=== PATIENT | female | born 1965 | race Two or more races ===

== ENCOUNTER 2018-07-14 08:55 | Outpatient (CLI) | payer OTHER ==
[~2018-07-14 08:55] MED LIST: SYNTHROID125 MCG
== END 2018-07-14 09:18 | disposition home or self-care (01) ==
LOC: SONOGRAMA 08:55 → MAMO-SONO 09:15 → SONOGRAMA 09:18
DX: S23.41XA Sprain of ribs, initial encounter (principal); R10.84 Generalized abdominal pain

== ENCOUNTER → 2020-06-25 14:33 | Outpatient (CLI) | payer OTHER | END | disposition home or self-care (01) | LOC: PPH VACUNA 14:33 | DX: Z23 Encounter for immunization (principal) ==

== ENCOUNTER → 2021-02-20 | Outpatient (CLI) | payer OTHER | END | disposition home or self-care (01) | LOC: PPH VACUNA 07:00 | PROVIDERS: ATTEND Emergency Medicine Pediatric Emergency Medicine | DX: Z23 Encounter for immunization (principal) ==

== ENCOUNTER 2022-12-09 12:01 | Emergency (ER) | payer OTHER ==
[~2022-12-09] VITALS: Ht 157.5 cm; Wt 56.2 kg
[2022-12-09] MEDS ORDERED: LOSARTAN POTASS50 MG PO (12:37)
[2022-12-09] MEDS ORDERED: METOPROLOL SUCC25 MG PO (12:38)
[2022-12-09] MEDS ORDERED: CRESTOR5 MG PO (12:38)
[2022-12-09 15:55] LABS: HEMOGLOBIN 14.1 g/dL (12.0-15.00); MEAN CORPUSCULAR HEMOGLOBIN 30.9 pg (27.00-32.0); MEAN CORPUSCULAR HGB CONC 34.3 g/dl (32.0-36.0); PLATELET COUNT 232 K/uL (150-450); RED BLOOD COUNT 4.56 M/uL (4.00-6.00)
[2022-12-09] MEDS ORDERED: PEPCID AC20 MG PO (19:25)
[2022-12-09] MEDS ORDERED: INTESTINEX680 M1 PO (19:25)
== END 2022-12-09 19:48 | disposition home or self-care (01) ==
LOC: ER 12:02
PROVIDERS: Nurse Practitioner Family
DX: K52.89 Other specified noninfective gastroenteritis and colitis (principal)